=== PATIENT | male | born 1950 | race Hispanic/Latino ===

== ENCOUNTER → 2022-12-25 | Outpatient (CLI) | payer OTHER ==
[~2022-12-25] MED LIST: ALLO300T2 PO; ATEN1TAB3 PO; LOVA10TA2 PO; MULT-1258 PO; UMEC1DIS IH
[2022-12-25 16:37] LABS: CREATININE 1.1 mg/dL (0.5-1.5); POTASSIUM 3.1 mmol/L (3.5-5.1)
== END | disposition home or self-care (01) ==
LOC: LAB 15:45
PROVIDERS: ATTEND Internal Medicine Cardiovascular Disease
DX: I10 Essential (primary) hypertension (principal)
CPT/HCPCS: 36415; 80048

== ENCOUNTER → 2022-12-27 | Outpatient (CLI) | payer OTHER ==
[~2022-12-27] MED LIST changes: +IOHEXOL 350 MG/ML 100ML INFUS..BTL IV ONE; +KETO10 PO
== END | disposition home or self-care (01) ==
LOC: RAH 09:18
PROVIDERS: ATTEND Internal Medicine Cardiovascular Disease
DX: Z01.810 Encounter for preprocedural cardiovascular examination (principal); I25.119 Atherosclerotic heart disease of native coronary artery with unspecified angina pectoris; I10 Essential (primary) hypertension
CPT/HCPCS: 75574; Q9967

== ENCOUNTER 2022-12-28 09:00 | Observation (INO) | payer OTHER ==
[2022-12-27 10:32] LABS: BASOPHILS # (AUTO) 0.11 K/uL (0.00-0.20); BASOPHILS % (AUTO) 0.8 % (0.0-5.0); EOSINOPHILS # (AUTO) 0.32 K/uL (0.00-0.70); EOSINOPHILS % (AUTO) 2.3 % (0.0-8.0); HEMATOCRIT 49.6 % (42-54); IMMATURE GRANULOCYTE ABSOLUTE 0.06 K/uL (0-1); LYMPHOCYTES # (AUTO) 3.2 K/uL (1.0-4.8); LYMPHOCYTES % (AUTO) 23.4 % (21.0-51.0); MEAN CORPUSCULAR HEMOGLOBIN 31.8 pg (27.0-33.0); MEAN CORPUSCULAR HGB CONC 34.3 g/dL (32.0-36.0); MEAN CORPUSCULAR VOLUME 92.7 fL (79-99); MONOCYTES # (AUTO) 1.1 K/uL (0.1-1.0); MONOCYTES % (AUTO) 7.7 % (3.0-13.0); NEUTROPHILS % (AUTO) 65.4 % (40.0-77.0); PLATELET COUNT (AUTO) 265 K/uL (130-400); RED BLOOD CELL COUNT(AUTO) 5.35 MIL/uL (4.50-6.20); RED CELL DISTRIBUTION WIDTH 14.5 % (11.0-15.5); WHITE BLOOD COUNT (AUTO) 13.8 K/uL (4.8-10.8)
[2022-12-27 10:42] LABS: CREATININE 1.1 mg/dL (0.5-1.5); POTASSIUM 3.1 mmol/L (3.5-5.1)
[2022-12-27 10:56] VITALS: BP 163/77; PULSE 55; RESP 17
[~2022-12-28] VITALS: Ht 167.6 cm; Wt 73.8 kg
[~2022-12-28 09:00] MED LIST changes: -IOHEXOL 350 MG/ML 100ML INFUS..BTL IV ONE; -KETO10 PO
[2023-01-01] VITALS (28 sets, daily range): BP systolic 92–157; BP diastolic 49–77; PULSE 59–74; RESP 10–20; O2SAT 98–99
[2023-01-01] MEDS ORDERED: CEFAZOLIN SODIUM 2 GM VIAL ONE (06:08)
[2023-01-01] MEDS ORDERED: LACTATED RINGERS 1000ML 1,000 ML IV ONE (06:08)
[2023-01-01 06:25] LABS: CREATININE 1.2 mg/dL (0.5-1.5); POTASSIUM 3.4 mmol/L (3.5-5.1)
[2023-01-01] MEDS ORDERED: CEFAZOLIN SODIUM 1 GM VIAL ONE (06:47)
[2023-01-01] MEDS ORDERED: THROMBIN-JMI 20000 UNIT KIT TP ONE (06:48)
[2023-01-01] MEDS ORDERED: MORPHINE PF 100MG/10ML AMP IV ONE ×2 (06:48→07:45)
[2023-01-01] MEDS ORDERED: SUCCINYLCHOLINE CHLORIDE 20 MG/ML 10 ML VIAL ONE (06:57)
[2023-01-01] MEDS ORDERED: DEXAMETHASONE SOD PHOSPHATE 10MG/ML 1ML VIAL ONE (06:57)
[2023-01-01] MEDS ORDERED: LIDOCAINE PF 100MG/5ML (2%) SYRINGE 5ML ONE (06:57)
[2023-01-01] MEDS ORDERED: PROPOFOL 10 MG/ML 20ML VIAL IV ONE (06:58)
[2023-01-01] MEDS ORDERED: GLYCOPYRROLATE 1 MG/5 ML SYRINGE ONE ×2 (06:58→09:58)
[2023-01-01] MEDS ORDERED: MIDAZOLAM HCL 1 MG/ML 2ML VIAL ONE (06:58)
[2023-01-01] MEDS ORDERED: ONDANSETRON 4MG INJ ONE ×2 (06:59→07:06)
[2023-01-01] MEDS ORDERED: NEOSTIGMINE 5MG/5ML SYR IV ONE (06:59)
[2023-01-01] MEDS ORDERED: ROCURONIUM 10MG/1ML SYR 10 MG/ML ML ONE ×2 (07:00→08:05)
[2023-01-01] MEDS ORDERED: FENTANYL CITRATE PF 50 MCG/1 ML 2ML VIAL ONE ×2 (07:00→09:17)
[2023-01-01] MEDS ORDERED: LIDOCAINE 2%-EPI PF 30 ML+BUPIVACAINE/PF 0.25% 30ML /60ML SYR IJ SCH ×2 (07:00)
[2023-01-01] MEDS ORDERED: CEFAZOLIN SODIUM 1 GM VIAL IVPB ONE (07:45)
[2023-01-01] MEDS ORDERED: THROMBIN 20000 UNITS/VIAL POWDER TP ONE (07:49)
[2023-01-01] MEDS ORDERED: CEFAZOLIN SODIUM 2 GM VIAL IVPB ONE (07:50)
[2023-01-01] MEDS ORDERED: ARTIFICIAL TEARS 3.5 GM OINTMENT ONE (08:04)
[2023-01-01] MEDS ORDERED: 0.9%NACL 10ML VIAL IVP PRN (10:30)
[2023-01-01] MEDS ORDERED: PROMETHAZINE HCL 25 MG/ML 1ML AMPULE IM PRN (10:30)
[2023-01-01] MEDS ORDERED: HYDROCODONE/ACETAMINOPHEN 5/325 MG TAB PO PRN (10:30)
[2023-01-01] MEDS ORDERED: MORPHINE 2 MG SYG IVP PRN (10:30)
[2023-01-01] MEDS: LACTATED RINGERS 1000ML 1,000 ML IV SCH ×2 (12:35→23:50)
[2023-01-01] MEDS: DEXAMETHASONE SOD PHOSPHATE 4 MG/ML 1ML VIAL IVP SCH ×3 (12:38→23:27)
[2023-01-01] MEDS: CEFAZOLIN SODIUM 1 GM VIAL IVPB SCH ×2 (16:45→17:53)
[2023-01-01] MEDS ORDERED: ATORVASTATIN 10 MG TABLET PO SCH (21:00)
[2023-01-02] VITALS: BP 109/53; PULSE 56; RESP 20
[2023-01-02] MEDS: CEFAZOLIN SODIUM 1 GM VIAL IVPB SCH ×2 (02:30→09:05)
[2023-01-02 04:00] VITALS: BP 115/63; PULSE 60; RESP 20
[2023-01-02] MEDS: DEXAMETHASONE SOD PHOSPHATE 4 MG/ML 1ML VIAL IVP SCH ×2 (05:12→09:05)
[2023-01-02 07:37] VITALS: BP 121/57; PULSE 59; RESP 19
[2023-01-02] MEDS ORDERED: ALLOPURINOL 300 MG TABLET PO SCH (08:00)
[2023-01-02] MEDS ORDERED: CHLORTHALIDONE E PO SCH (09:00)
[2023-01-02] MEDS ORDERED: MULTIVITAMIN WITH MINERALS TABLET PO SCH (09:00)
[2023-01-02] MEDS ORDERED: NON-FORMULARY MEDICATION 1 EACH (Multivits-Min/FA/Lycopene/Lut (Centrum Silver Tablet) 1 E PO SCH (09:00)
[2023-01-02] MEDS ORDERED: NON-FORMULARY MEDICATION 1 EACH (Lovastatin 10 MG) PO SCH (09:00)
[2023-01-02] MEDS ORDERED: ATENOLOL PO SCH (09:00)
[2023-01-02 09:06] VITALS: O2SAT 99
[2023-01-02] MEDS ORDERED: KETO10 PO ×2 (10:28)
== END 2023-01-02 11:00 | disposition home or self-care (01) ==
LOC: EDSTATUS 09:00 → DAHIP 01-01 05:51 → 4BH 01-01 11:41
PROVIDERS: ADMIT Neurological Surgery; ATTEND Neurological Surgery
DX: M48.061 Spinal stenosis, lumbar region without neurogenic claudication (principal); M10.9 Gout, unspecified; I10 Essential (primary) hypertension; E78.5 Hyperlipidemia, unspecified; J44.9 Chronic obstructive pulmonary disease, unspecified; Z79.899 Other long term (current) drug therapy
CPT/HCPCS: 80048 ×2; 85025; 36415 ×2; 71045; 63047; 63048 ×3; 96376 ×2; 96365; 96375; 72020; A6260; J1100 ×5; G0378 ×23; G0379; A4600; A4510; J7120 ×2; A4344; J3010 ×2; J0690 ×5; J3490 ×5; J2710; J0330; J2001; J2250; J2704; J2274 ×2; J2405 ×2; A4215; A4223; A4222; A4221; A4663